=== PATIENT | male | born 1955 | race Caucasian/White ===

== ENCOUNTER 2019-10-27 06:09 | Day surgery (SDC) | payer BC ==
[2019-10-26 13:43] VITALS: BMI 28.0
[2019-10-27] MEDS ORDERED: Thrombin 5000 UNITS/5 ML VIAL ONE (06:33)
[2019-10-27] MEDS ORDERED: Fentanyl 250 MCG/5 ML VIAL ONE (07:06)
--- NOTE | 2019-10-27 22:54 | EKG ---
Test Reason : PREOP Blood Pressure : / mmHG Vent. Rate : 061 BPM Atrial Rate : 288 BPM P-R Int : 000 ms QRS Dur : 106 ms QT Int : 426 ms P-R-T Axes : 000 -18 020 degrees QTc Int : 428 ms Atrial fibrillation Abnormal ECG No previous ECGs available Confirmed by CHELY ISAAC, DR. Gutierrez ([id number]) on 10/27/2019 10:53:56 PM Referred By: JUVENAL Confirmed By:DR. Brenda MO MD
--- NOTE | 2019-10-27 22:55 | EKG ---
Test Reason : REPEAT Blood Pressure : / mmHG Vent. Rate : 067 BPM Atrial Rate : 340 BPM P-R Int : 000 ms QRS Dur : 112 ms QT Int : 426 ms P-R-T Axes : 000 -20 026 degrees QTc Int : 450 ms Atrial fibrillation Abnormal ECG Confirmed by CHELY ISAAC, DR. Gutierrez (4) on 10/27/2019 10:54:39 PM Referred By: JUVENAL Confirmed By:DR. Brenda MO MD
== END 2019-10-27 08:02 | disposition home or self-care (01) ==
LOC: SDC 06:09
PROVIDERS: ATTEND Surgery
DX: M51.16 Intervertebral disc disorders with radiculopathy, lumbar region (principal); I48.91 Unspecified atrial fibrillation; Z53.09 Procedure and treatment not carried out because of other contraindication
CPT/HCPCS: 93005; 93010; J0690; J3010; J3370; J3490

== ENCOUNTER 2019-12-22 06:37 | Outpatient (CLI) | payer BC, OTHER ==
[2019-12-22 12:21] LABS: Hemoglobin 14.9 g/dL (14.0-18.0); Mean Corpuscular HGB CONC 32.1 g/dL (32.0-36.0); Mean Corpuscular Hemoglobin 29.3 pg (27.0-31.0); Mean Corpuscular Volume 91.2 fL (78.0-98.0); Mean Platelet Volume 7.8 fL (7.4-10.4); Platelet Count 178 thou/uL (130-400); RBC Distribution Width 12.2 % (11.5-14.5); Red Blood Cell (RBC) Count 5.08 mill/uL (4.70-6.10); White Blood Cell (WBC) Count 4.7 thou/uL (4.8-10.8)
[2019-12-22 12:35] LABS: PTT 30.5 SEC (22.9-36.1)
[2019-12-22 12:36] LABS: INR-International Normal Ratio 1.1
[2019-12-22 12:38] LABS: Anion Gap 12 mmol/L (10-20); BUN (Urea Nitrogen) 23 mg/dL (8.4-25.7); Calc. Creatinine Clearance 0 mL/min (70-130); Calcium 9.6 mg/dL (7.8-10.44); Carbon Dioxide 26 mmol/L (23-31); Chloride 103 mmol/L (98-107); Estimated GFR-MDRD 88; Glucose 85 mg/dL (80-115); Potassium 4.4 mmol/L (3.5-5.1); Sodium 137 mmol/L (136-145)
[2019-12-22 18:04] LABS: SARS-CoV-2 MS2 Positive; SARS-CoV-2 N Gene Negative; SARS-CoV-2 S Gene Negative; SARS-CoV-2 orf1ab Negative
== END 2019-12-22 06:38 | disposition home or self-care (01) ==
LOC: LABBT 06:37
PROVIDERS: ATTEND Surgery
DX: Z01.812 Encounter for preprocedural laboratory examination (principal); Z11.59 Encounter for screening for other viral diseases; M48.061 Spinal stenosis, lumbar region without neurogenic claudication; M51.16 Intervertebral disc disorders with radiculopathy, lumbar region
CPT/HCPCS: 80048; 85027; 85610; 85730; 87635; U0003

== ENCOUNTER 2019-12-25 06:06 | Day surgery (SDC) | payer BC ==
[2019-12-22 10:54] VITALS: BMI 28.8
[2019-12-25] MEDS ORDERED: Thrombin 5000 UNITS/5 ML VIAL ONE (06:33)
[2019-12-25] MEDS ORDERED: Lidocaine 2% Jelly 5 ML TUBE ONE (06:41)
[2019-12-25] MEDS ORDERED: Fentanyl 100 MCG/2 ML VIAL ONE ×3 (06:41→11:04)
[2019-12-25] MEDS ORDERED: Ondansetron PF 4 MG/2 ML Vial IVP PRN (10:06)
[2019-12-25] MEDS ORDERED: traMADol HCl 50 MG TAB PO PRN (10:06)
[2019-12-25] MEDS ORDERED: Acetaminophen/Codeine 30-300mg Tablet PO PRN (10:06)
[2019-12-25] MEDS ORDERED: Mag-Al 1200 mg/1200 mg/30 ML UDCUP PO PRN (10:06)
[2019-12-25] MEDS ORDERED: Bisacodyl 10 MG SUPP PR PRN (10:06)
[2019-12-25] MEDS ORDERED: Promethazine HCl 25 MG/ML VIAL IM PRN (10:06)
[2019-12-25] MEDS ORDERED: Acetaminophen 325 MG TAB PO PRN (10:06)
[2019-12-25] MEDS ORDERED: Morphine 2 MG/ML SYRINGE SLOW IVP PRN (10:06)
[2019-12-25] MEDS ORDERED: Ondansetron HCl/PF 4 MG/2 ML Vial IVP PRN (10:06)
[2019-12-25] MEDS ORDERED: Milk Of Magnesia 30 ML UDCUP PO PRN (10:06)
[2019-12-25] MEDS ORDERED: Fleet Enema 133 ML BOT PR PRN (10:06)
[2019-12-25] MEDS ORDERED: Promethazine HCl 25 MG/ML VIAL SLOW IVP PRN (10:06)
[2019-12-25] MEDS ORDERED: Succinylcholine Chloride 20 MG/ML 10 ml SYRINGE FS ONE (11:45)
[2019-12-25] MEDS ORDERED: EPHEDRINE 25 MG/5 ML SYRINGE ONE (11:45)
[2019-12-25] MEDS ORDERED: Ketorolac Tromethamine 30 MG/ML VIAL ONE (11:45)
[2019-12-25] MEDS ORDERED: Ondansetron PF 4 MG/2 ML Vial ONE (11:45)
[2019-12-25] MEDS ORDERED: Lidocaine 1% PF 5 ML VIAL ONE (11:45)
[2019-12-25] MEDS ORDERED: Dexamethasone 20 MG/5 ML VIAL ONE (11:45)
[2019-12-25] MEDS ORDERED: PROPOFOL 200 MG/20 ML VIAL ONE (11:45)
[2019-12-25] MEDS ORDERED: Glycopyrrolate 0.2 MG/ML 5 ML SYRINGE ONE (11:45)
[2019-12-25] MEDS ORDERED: Rocuronium Bromide 10 MG/ML (10ML VIAL) ONE (11:45)
[2019-12-25] MEDS: Sodium Chloride 0.9% 1,000 ML IV SCH (12:01)
[2019-12-25] MEDS: HYDROcodone/Acetaminophen 7.5/325 mg Tablet PO PRN ×2 (13:36→19:09)
[2019-12-25] MEDS: CEFAZOLIN 2 GM in Premix Bag 1 BAG IVPB SCH (14:44)
[2019-12-25] MEDS: tiZANidine HCl 4 MG TAB PO PRN (19:10)
[2019-12-25] MEDS ORDERED: Zolpidem Tartrate 5 MG TAB PO PRN (20:52)
[2019-12-26] MEDS: CEFAZOLIN 2 GM in Premix Bag 1 BAG IVPB SCH
[2019-12-26] MEDS: Sodium Chloride 0.9% 1,000 ML IV SCH (01:50)
[2019-12-26] MEDS: HYDROcodone/Acetaminophen 7.5/325 mg Tablet PO PRN ×3 (04:38→08:21)
[2019-12-26] MEDS: tiZANidine HCl 4 MG TAB PO PRN (04:38)
--- NOTE | 2019-12-26 06:17 | OP ---
DATE OF PROCEDURE: 12/25/2019 ACTIVE DIRECTORY ENGINEER: Kateryna Medina PA-C. PREPROCEDURE DIAGNOSES: Right L5 radiculopathy with right L5 foraminal stenosis due to disk extrusion and facet hypertrophy. POSTPROCEDURE DIAGNOSES: Right L5 radiculopathy with right L5 foraminal stenosis due to disk extrusion and facet hypertrophy. PROCEDURE PERFORMED: 1. Right L5-S1 transfacet diskectomy with decompression of the exiting right L5 nerve root. 2. Use of operative microscope for microdissection. DESCRIPTION OF PROCEDURE: After informed consent was obtained from the patient, the patient was brought to the OR. Proper patient, pause, and identification were carried out. He was placed under excellent endotracheal anesthesia and positioned prone on the OR table. All appropriate points were padded. We identified a linear jackie to allow for approach to the L5-S1 segment. This area was sterilely cleansed, prepared, and draped. Proper patient, pause, and identification were carried out. The wound was then opened with a combination of sharp, monopolar, and blunt dissection. The right L5-S1 segment identified, in particular the facet and a transfacet approach was utilized with the use of operative microscope for diskectomy. We had excellent decompression of the exiting right L5 nerve root. I was very pleased with the decompression. We then copiously irrigated and the wound was closed following sprinkling of vancomycin powder and hemostasis. Job ID: [id number]
[2019-12-26 07:41] VITALS: BP 113/78; TEMP 97.6
[2019-12-26] MEDS ORDERED: Magnesium Oxide 250 MG TAB PO SCH (09:00)
[2019-12-26] MEDS ORDERED: Multivit, Therapeutic 1 TAB PO SCH (09:00)
--- NOTE | 2019-12-26 09:05 | PRG ---
DATE OF SERVICE: We saw Mr. Baugh on rounds this morning. He is one day out from a microdiskectomy on the right side at L5. He had improvement in his leg symptoms. He has some iliac crest discomfort and gluteal discomfort, but it is better than before surgery. Overnight, I do not see a fever among the electronically recorded vital signs. The other vital signs are stable. There is good neurological function in lower extremities. Mr. Baugh is ready for discharge. We went over activity restrictions and wound care and followup. Job ID: [id number]
--- NOTE | 2019-12-27 03:43 | DIS ---
DATE OF ADMISSION: 12/25/2019 DATE OF DISCHARGE: 12/26/2019 HOSPITAL COURSE: Mr. Baugh is a 64-year-old male post op microdiskectomy on the right side at L5. States his symptoms are improving. He does complain of some gluteal discomfort, but much better after the surgery. His pain has been well controlled with p.o. medications. He has tolerated a regular diet, and he is voiding appropriately. He is otherwise doing well and ambulating easily and feels that he is ready to go home today. PHYSICAL EXAMINATION: Today, he is awake, alert, in no acute distress. There are no fevers among the electronic record's vital signs. He has good neurological function in the lower extremities. His incision is clean, dry, and intact. We will dismiss the patient home. I discussed home care precautions with him. CONDITION ON DISCHARGE: The patient had no emergencies. Condition was stable for discharge. MEDICATIONS: Home-going medications were reviewed. FOLLOWUP: Followup arrangements made by our on site coordinator in the clinic and call to the patient. ACTIVITIES: Restrictions were reviewed in person. Wound care showers are acceptable. The patient should pat the incision dry, but not submerge it under the surface of body of water for 2 months. Job ID: [id number] MTDD
== END 2019-12-26 10:15 | disposition home or self-care (01) ==
LOC: SDC 06:06 → SURG A 12:40 → SDC 12-26 10:15
PROVIDERS: ATTEND Surgery
PROC: 0SB20ZZ Excision of Lumbar Vertebral Disc, Open Approach (ICD-10-PCS; principal; 2019-12-25)
DX: M51.16 Intervertebral disc disorders with radiculopathy, lumbar region (principal); M48.061 Spinal stenosis, lumbar region without neurogenic claudication; Z79.1 Long term (current) use of non-steroidal anti-inflammatories (NSAID); Z79.899 Other long term (current) drug therapy
CPT/HCPCS: 76000; J0690; J1100; J1885; J2001; J2405; J2704; J3010; J3370